=== PATIENT | male | born 1970 | race Caucasian/White ===

== ENCOUNTER 2018-04-13 09:28 | Inpatient (IN) | payer MEDICAID ==
[~2018-04-13] VITALS: Ht 180.3 cm; Wt 108.9 kg
[2018-04-13 09:41] VITALS: BP 231/161
--- NOTE | 2018-04-13 09:45 | NUR ---
47 Y/O M PRESENTS TO THE ED W/C/O "FEELING BLOATED IN THE STOMACH." PT STATES HE HAD BLOODY URINE A WEEK AGO BUT IT HAS RESOLVED. PT ALSO REPORTS INTERMITTENT BLURRY VISION. PT DENIES N/V/D; SKIN IS INTACT, PINK/WARM/DRY; AAOX4, PERRL, WITH EVEN AND STEADY GAIT; LUNGS CLEAR BL, BREATHING UNLABORED; HR EVEN AND REGULAR, BL PERIPHERAL PULSES PRESENT; BS ACTIVE X4. PT DENIES ANY FEVER, CP, SOB, OR COUGH AT THIS TIME; PT STATES 6/10 PAIN AT THIS TIME; VSS; PATIENT POSITIONED FOR COMFORT; HOB ELEVATED; BEDRAILS UP X2; BED DOWN. DENIES HX DENIES RX. BLOOD PRESSURE 231/[address] MIN MADE AWARE.
--- NOTE | 2018-04-13 09:52 | NUR ---
PATIENT AMBULATED TO BED #4
--- NOTE | 2018-04-13 10:12 | NUR ---
EKG COMPLETED BY ANDREW HAGER.
--- NOTE | 2018-04-13 10:18 | NUR ---
Patient being evaluated by physician at bedside.
--- NOTE | 2018-04-13 10:38 | NUR ---
PT TAKEN TO CT VIA WHEELCHAIR
--- NOTE | 2018-04-13 10:38 | NUR ---
PT BEING TAKEN TO CT AT THIS TIME.
[2018-04-13 10:39] LABS: BASOPHILS % (AUTO) 0.4 % (0.0-2.0); EOSINOPHILS # (AUTO) 0.2 K/uL (0-0.4); EOSINOPHILS % (AUTO) 2.7 % (0.0-4.0); HEMATOCRIT 32.3 % (36-52); HEMOGLOBIN 11.3 g/dL (12.0-18.0); LYMPHOCYTES # (AUTO) 1.1 K/uL (2.0-11.5); LYMPHOCYTES % (AUTO) 14.5 % (20.5-51.1); MEAN CORPUSCULAR HEMOGLOBIN 31 pg (27-31); MEAN CORPUSCULAR HGB CONC 35 g/dL (33-37); MEAN CORPUSCULAR VOLUME 88.9 fL (80-94); MONOCYTES # (AUTO) 0.4 K/uL (0.8-1.0); MONOCYTES % (AUTO) 4.7 % (1.7-9.3); NEUTROPHILS # (AUTO) 5.9 K/uL (1.8-7.7); NEUTROPHILS % (AUTO) 77.7 % (42.2-75.2); PLATELET COUNT (AUTO) 125 K/uL (140-450); RED BLOOD CELL COUNT(AUTO) 3.64 MIL/uL (4.20-6.10); RED CELL DISTRIBUTION WIDTH 16.1 % (11.6-13.7); WHITE BLOOD COUNT (AUTO) 7.5 K/uL (4.8-10.8)
[2018-04-13 10:42] LABS: BILIRUBIN,URINE 1+ (NEGATIVE); BLOOD, URINE 3+ (NEGATIVE); COLOR,URINE YELLOW (YELLOW); LEUKOCYTE ESTERASE ,URINE NEGATIVE (NEGATIVE); NITRITE, URINE NEGATIVE (NEGATIVE); UGLUCOSE NEGATIVE (NEGATIVE)
[2018-04-13 10:44] LABS: ALBUMIN 4.1 g/dL (3.4-5.0); ANION GAP 13.2 (8-16); CARBON DIOXIDE 30.5 mmol/L (21-32); CREATININE 3.2 mg/dL (0.7-1.3); TOTAL BILIRUBIN 4.3 mg/dL (0.0-1.0)
[2018-04-13 10:47] LABS: APPEARANCE,URINE HAZY (CLEAR); RBC,URINE 20-50 /HPF (0-5)
--- NOTE | 2018-04-13 10:47 | NUR ---
PT RETURNED FROM CT
[2018-04-13 10:48] LABS: WBC,URINE 0-5 (RARE) /HPF (0-5)
[2018-04-13 10:54] LABS: POTASSIUM 2.7 mmol/L (3.5-5.1)
[2018-04-13] MEDS ORDERED: LABETALOL 100 MG/20 ML VIAL IVP ONE (11:25)
[2018-04-13] MEDS ORDERED: POTASSIUM CHLORIDE 10 MEQ TABER PO ONE (11:25)
[2018-04-13] MEDS ORDERED: DOCUSATE SODIUM 100 MG GELCAP PO PRN (11:35)
[2018-04-13] MEDS ORDERED: ACETAMINOPHEN 325 MG TAB PO PRN (11:35)
[2018-04-13] MEDS ORDERED: MORPHINE SULFATE 2 MG/ML SYR IVP PRN (11:35)
[2018-04-13] MEDS ORDERED: HYDROcodone/APAP 7.5/325 MG 1 TAB PO PRN (11:35)
[2018-04-13] MEDS ORDERED: ONDANSETRON 4 MG/2 ML VIAL IM/IVP PRN (11:35)
--- NOTE | 2018-04-13 11:44 | NUR ---
PT RESTING IN BED, HANDS CROSSED, FEET UNCROSSED. RELAXED FACIAL POSISTION. SISTER AT BEDSIDE. NO S/S OF DISTRESS NOTED.
--- NOTE | 2018-04-13 12:02 | NUR ---
US AT BEDSIDE.
--- NOTE | 2018-04-13 12:22 | NUR ---
B/P 225/[address] MIN MADE AWARE, STATED WE WILL CONTINUE TO MONITOR BEFORE TRANSFER TO FLOOR, ORDERS TO BE PUT IN.
[2018-04-13] MEDS ORDERED: LORazepam 2 MG/ML VIAL IVP STA (12:24)
[2018-04-13] MEDS ORDERED: hydrALAZINE 20 MG/ML VIAL IVP STA ×2 (12:24→13:05)
--- NOTE | 2018-04-13 13:04 | NUR ---
DR. MIN MADE AWARE OF B/P 193/125.
--- NOTE | 2018-04-13 13:11 | NUR ---
PER DR. MIN 10MG HYDRALAZINE TO BE GIVEN.
[2018-04-13 13:16] LABS: BARBITURATE, URINE NEG. ng/ml (NEG <=200); BENZODIAZEPINE, URINE NEG. ng/mL (NEG <=200); CANNABINOID, URINE NEG. ng/mL (NEG <=50); COCAINE, URINE NEG. ng/mL (NEG <=300); OPIATE, URINE NEG. ng/mL (NEG <=2000); PHENCYCLIDINE SCREEN,URINE NEG. ng/mL (NEG <=25)
[2018-04-13 13:18] LABS: PROTHROMBIN TIME 9.9 secs (10.8-13.4)
[2018-04-13] MEDS ORDERED: hydrALAZINE 25 MG TAB PO SCH (13:21)
[2018-04-13 13:28] LABS: CHOL/HDL RATIO 2.9 (1-4.5); MAGNESIUM 2.1 mg/dL (1.8-2.4); PHOSPHORUS 3.6 mg/dL (2.5-4.9); THYROID STIMULATING HORMONE 1.02 uIU/mL (0.34-3.74)
[2018-04-13] MEDS ORDERED: ASPIRIN 325 MG TAB PO ONE (13:45)
--- NOTE | 2018-04-13 13:48 | NUR ---
PT TO GO TO ICU PER DR. MIN
--- NOTE | 2018-04-13 13:58 | NUR ---
PT TAKEN TO ICU BY RN PAUL AND EMT DWAYNE
[2018-04-13] MEDS ORDERED: HEPARIN PER PHARMACY MC PRN (14:05)
--- NOTE | 2018-04-13 14:08 | NUR ---
Patient will be admitted to care of DR. HATFIELD. Admited to ICU. Will go to room 3. Belongings list completed. Report to KULWANT STAHL.
[2018-04-13 14:10] VITALS: BP 187/102
--- NOTE | 2018-04-13 14:10 | NUR ---
PT TRANSFERRED FROM ED TO ICU. PT IS ALERT AND ORIENTED X4. ABLE TO MAKE NEEDS KNOWN AND FOLLOWS COMMANDS. DENIES PAIN. TEMP 99.2. SINUS RHYTHM ON MONITOR. BP 175/113, HR 94, O2 97% ON ROOM AIR. LUNGS SOUND CLEAR BILATERALLY. BREATHING EVEN AND UNLABORED. NO C/O SOB OR CP. ABDOMEN SOFT, ROUND, NONTENDER W/ ACTIVE BOWEL SOUNDS. PERIPHERAL IV G20 TO LEFT AC LEAKING, WILL INSERT NEW IV. SKIN IS DRY AND WARM TO TOUCH. PULSES PRESENT TO ALL EXTREMITIES. SKIN INTACT, NO EDEMA NOTED. PT IS CONTINENT B&B. BED IN LOWEST POSITION AND CALL LIGHT WITHIN REACH. WILL CONTINUE TO MONITOR.
[2018-04-13] MEDS: NACL 0.9% 1,000 ML IV SCH (14:45)
[2018-04-13] MEDS ORDERED: POTASSIUM CHLORIDE 10 MEQ TABER PO SCH (15:10)
[2018-04-13] MEDS ORDERED: METOPROLOL 5 MG/5 ML VIAL IV PRN (15:10)
[2018-04-13] MEDS: hePARIN / DEXT 5% PREMIX 250 ML IV SCH (15:34)
--- NOTE | 2018-04-13 15:34 | NUR ---
HEPARIN DRIP STARTED ORDERED PER PROTOCOL. WILL CONTINUE TO MONITOR.
[2018-04-13 16:00] VITALS: BP 173/142
[2018-04-13] MEDS: hydrALAZINE 25 MG TAB PO SCH (16:23)
--- NOTE | 2018-04-13 16:28 | NUR ---
PT SEEN AND EXAMINED BY DR. LIU. WILL FOLLOW UP ON ORDERS.
[2018-04-13] MEDS ORDERED: METOPROLOL 25 MG TAB PO SCH (16:32)
--- NOTE | 2018-04-13 17:10 | NUR ---
DINNER PROVIDED. PT ABLE TO EAT INDEPENDENTLY. FAMILY AT BEDSIDE. NO SIGNS OF DISTRESS NOTED AT THIS TIME. SAFETY PRECAUTIONS IN PLACE.
[2018-04-13 18:00] VITALS: BP 184/120
[2018-04-13] MEDS ORDERED: amLODIPine 5 MG TAB PO SCH (18:28)
[2018-04-13] MEDS: METOPROLOL 5 MG/5 ML VIAL IV PRN (18:32)
--- NOTE | 2018-04-13 18:40 | NUR ---
PT SEEN AND EXAMINED BY DR. SARAH Rodriguez WILL FOLLOW UP ON ORDERS.
--- NOTE | 2018-04-13 19:19 | NUR ---
REPORT GIVEN TO STOCK HOLDER NURSE FOR CONTINUITY OF CARE. NO SIGNS OF ACUTE DISTRESS NOTED AT THIS TIME.
--- NOTE | 2018-04-13 19:30 | NUR ---
RECEIVED BEDSIDE REPORT FROM MORNING SHIFT RNCESAR, FOR CONTINUITY OF CARE. YY=072/91, HR=76, SATING 100%, AND RR=17. PT IS AAOX4, ABLE TO RESPOND TO COMMANDS. LUNG SOUNDS CLEAR ON BILATER UPPER LOWER LOBES. ON ROOM AIR. ON RENAL DIET, BOWEL SOUND ACTIVE X4, ABDOMEN IS LARGE/ROUND. SR ON DIRECTOR [facility], RIGHT HAND 20 GAUGE, AND RFA 20 GAUGE, INFUSING NS AT 60CC/HR. PT DENIES PAIN/NAUSEA AT THIS TIME. SKIN IS INTACT, WARM TO TOUCH, NORMAL IN COLOR. URINAL AT BEDSIDE, INDEPENDENT. NS AT 60ML/HR INTO RIGHT FA 20 GAUGE, HEPARIN TO RIGHT HAND AT 1000 UNIT/HR TO RIGHT HAND 20 GAUGE. SIDE RAILS UPX4, HOB ELEVATED ABOVE 30 DEG, ABLE TO REPOSITION SELF IN BED.
[2018-04-13 20:00] VITALS: BP 166/114
[2018-04-13] MEDS: METOPROLOL 25 MG TAB PO SCH (20:23)
--- NOTE | 2018-04-13 20:30 | NUR ---
FAMILY AT BEDSIDE TO SEE PATIENT.
[2018-04-13 22:00] VITALS: BP 153/102
[2018-04-13 22:08] LABS: PROTHROMBIN TIME 10.4 secs (10.8-13.4)
--- NOTE | 2018-04-13 23:22 | NUR ---
PT SLEEPING, APPEARS WITHOUT DISTRESS. BP= 150/99, HR=72. DAYLIN PAIN AT THIS TIME, NS INFUSING AT 60CC/HR AND HEPARIN AT 1360UNITS/HR. URINE COLLECTIONS AT BEDSIDE BASIN, PLACED ON ICE.
[2018-04-14] VITALS (12 sets, daily range): BP systolic 151–200; BP diastolic 71–133
--- NOTE | 2018-04-14 01:17 | NUR ---
PT SLEEPING HOB ELEVATED, BP 143/91, SR-SB ON SUBSTITUTE NURSE, FLUCUTATING HR 58-60 TO 78.
--- NOTE | 2018-04-14 01:48 | NUR ---
PT SITTING UP AT BEDSIDE, URINE IS DARK JOSH IN COLOR/ 400cc. PT REQUEST ICE CHIPS FOR MILD THROAT DRYNESS. PT IS RELAXED, DENIES PAIN.
--- NOTE | 2018-04-14 01:54 | NUR ---
KELLY FROM LAB AT BEDSIDE TO COLLECT BLOOD SAMPLE.
[2018-04-14] MEDS: METOPROLOL 5 MG/5 ML VIAL IV PRN (02:34)
--- NOTE | 2018-04-14 02:40 | NUR ---
PRN METOPROLOL GIVEN PER ORDER.
--- NOTE | 2018-04-14 04:42 | NUR ---
CALLED DR. ZIMMERMAN AT [phone], UPDATED ON BP = 161/108, NO NEW ORDERS AT THIS TIME, WILL CONTINUE TO MONITOR.
[2018-04-14] MEDS: NACL 0.9% 1,000 ML IV SCH ×2 (04:55→19:57)
[2018-04-14 05:27] LABS: CARBON DIOXIDE 29.2 mmol/L (21-32); CREATININE 3.2 mg/dL (0.7-1.3)
[2018-04-14 05:30] LABS: MAGNESIUM 1.9 mg/dL (1.8-2.4); PHOSPHORUS 3.8 mg/dL (2.5-4.9)
[2018-04-14 05:58] LABS: POTASSIUM 3.2 mmol/L (3.5-5.1)
--- NOTE | 2018-04-14 05:58 | NUR ---
DR. HORAN AT BEDSIDE TO SEE PATIENT, UPDATED ON PT CONDITIONS.
[2018-04-14 06:33] LABS: BASOPHILS % (AUTO) 0.4 % (0.0-2.0); EOSINOPHILS # (AUTO) 0.1 K/uL (0-0.4); EOSINOPHILS % (AUTO) 1.9 % (0.0-4.0); HEMATOCRIT 26.3 % (36-52); HEMOGLOBIN 9.2 g/dL (12.0-18.0); LYMPHOCYTES # (AUTO) 1.1 K/uL (2.0-11.5); LYMPHOCYTES % (AUTO) 17.7 % (20.5-51.1); MEAN CORPUSCULAR HEMOGLOBIN 32 pg (27-31); MEAN CORPUSCULAR HGB CONC 35 g/dL (33-37); MEAN CORPUSCULAR VOLUME 90.3 fL (80-94); MONOCYTES # (AUTO) 0.4 K/uL (0.8-1.0); MONOCYTES % (AUTO) 5.9 % (1.7-9.3); NEUTROPHILS # (AUTO) 4.5 K/uL (1.8-7.7); NEUTROPHILS % (AUTO) 74.1 % (42.2-75.2); PLATELET COUNT (AUTO) 107 K/uL (140-450); RED BLOOD CELL COUNT(AUTO) 2.91 MIL/uL (4.20-6.10); WHITE BLOOD COUNT (AUTO) 6.1 K/uL (4.8-10.8)
--- NOTE | 2018-04-14 07:27 | NUR ---
PROVIDED BEDSIDE REPORT FOR MORNING SHIFT, KULWANT STAHL FOR CONTINUITY OF CARE.
--- NOTE | 2018-04-14 07:28 | NUR ---
RECEIVED REPORT FROM SMOKING PIPE MOUNTER RN AT BEDSIDE, PT IS AAOX4, ABLE TO FOLLOW COMMANDS AND MAKE NEEDS KNOWN, ELEVATED BP 182/132 NOTED, WILL MEDICATED, DENIES PAIN, NO S/S OF DISTRESS, CLEAR LUNG SOUNDS DIGNA, ON RA, O2 SAT 97%, DENIES CHEST PAIN, SR ON HOP SORTER, SOFT ABDOMEN WITH ACTIVE BOWEL SOUNDS, CONTINENT WITH B&B'S, SKIN IS WARM AND DRY TO TOUCH, NO OPEN WOUND PRESENT, IV SITE TO RIGHT FOREARM 20GA, AND RIGHT HAND 20GA, RUNNING NS AT 60 ML/HR AND HEPARIN AT 1350 UNITES/HR, ABLE TO MOVE ALL EXTREMITIES, SAFETY MEASURES IN PLACE, CALL LIGHT WITHIN REACH, WILL CONTINUE TO MONITOR.
--- NOTE | 2018-04-14 07:50 | NUR ---
PATIENT HAS BEEN SCREENED AND CATEGORIZED MODERATE NUTRITION RISK. PATIENT WILL BE SEEN WITHIN 3-5 DAYS OF ADMISSION. 04/15/18GUERO CARRILLO RD
--- NOTE | 2018-04-14 07:50 | NUR ---
OFFERED BREAKFAST TO PT, PT IS ABLE TO SIT UP TO BEDSIDE AND HAVING BREAKFAST WITHOUT ASSIST, DR. HATFIELD CAME IN, EXPLAINED THE PLAN OF CARE FOR TODAY, PT VERBALIZED UNDERSTANDING.
[2018-04-14 08:16] LABS: T3 UPTAKE 27 % (24-39); T4 (THYROXINE) 11.4 ug/dL (4.5-12.0)
[2018-04-14 08:24] LABS: PROTHROMBIN TIME 10.6 secs (10.8-13.4)
--- NOTE | 2018-04-14 08:30 | NUR ---
SCHEDULED MEDICATION GIVEN, PT IS ABLE TO TAKE PILLS WHOLE, NO ADVERSE EFFECTS NOTED, WILL CONTINUE TO MONITOR.
[2018-04-14] MEDS: hydrALAZINE 25 MG TAB PO SCH ×3 (08:36→17:01)
[2018-04-14] MEDS: METOPROLOL 25 MG TAB PO SCH (08:38)
[2018-04-14] MEDS ORDERED: hydrALAZINE 25 MG TAB PO SCH (09:00)
[2018-04-14] MEDS ORDERED: amLODIPine 5 MG TAB PO SCH ×2 (09:00→12:08)
[2018-04-14] MEDS ORDERED: POTASSIUM CHLORIDE 10 MEQ TABER PO SCH (09:00)
[2018-04-14] MEDS ORDERED: PROBIOTIC SCREEN 1 EA MISC MC PRN (09:55)
--- NOTE | 2018-04-14 10:30 | NUR ---
PT'S BP 180/130, DR. SMALLS MADE AWARE, WILL MEDICATED.
[2018-04-14] MEDS ORDERED: METOPROLOL 5 MG/5 ML VIAL IV SCH ×2 (10:40→17:00)
[2018-04-14] MEDS: hePARIN / DEXT 5% PREMIX 250 ML IV SCH (11:42)
--- NOTE | 2018-04-14 11:50 | NUR ---
PT'S BP STILL ELEVATED ONE AFTER IV PUSH OF METOPROLOL, 170/121, PT IS ASYMPTOMATIC, SITTING UP AND HAVING CONVERSATIONS WITH FAMILY MEMBERS, DR. ROB MADE AWARE, WILL FOLLOW UP WITH NEW ORDERS.
[2018-04-14] MEDS ORDERED: METOPROLOL 25 MG TAB PO SCH ×3 (12:09→21:00)
--- NOTE | 2018-04-14 13:48 | NUR ---
PT'S BP STILL HIGH, 169/111 AT THIS TIME, DR. MOSQUEDA MADE AWARE.
[2018-04-14 15:37] LABS: PROTHROMBIN TIME 10.2 secs (10.8-13.4)
--- NOTE | 2018-04-14 16:00 | NUR ---
PT IS RESTING IN BED, NO S/S OF DISTRESS, VSS, DENIES PAIN, ABLE TO REPOSITION SELF.
[2018-04-14] MEDS ORDERED: hydrALAZINE 20 MG/ML VIAL IVP PRN (17:45)
--- NOTE | 2018-04-14 17:50 | NUR ---
DR. ROSENBERG CAME IN TO SEE PT AT BEDSIDE, WILL FOLLOW UP WITH NEW ORDERS.
--- NOTE | 2018-04-14 18:24 | NUR ---
DR. SMITH CAME IN TO SEE PT AT BEDSIDE, WILL FOLLOW UP WITH NEW ORDERS.
--- NOTE | 2018-04-14 18:30 | NUR ---
24 HOUR URINE COLLECTED AND SENT TO LAB.
--- NOTE | 2018-04-14 19:15 | NUR ---
RECEIVED BEDSIDE REPORT FROM MORNING SHIFT RNKULWANT, FOR CONTINUITY OF CARE. PERRL, PT IS AAOX4, AWAKE AND ABLE TO MAKE NEEDS KNOWN. SR ON POUNCER. AFEBRILE TEMP 98.7. LUNG SOUND CLEAR UPPER/LOWER BILATERAL LOBES. ON ROOM AIR. RENAL DIET, BOWEL SOUND ACTIVE, DENIES PAIN/NAUSEA. CONTINENT, URINAL AT BEDSIDE, URINE IS DARK JOSH IN COLOR, 425ML. RIGHT HAND 20 GAUGE PIV, AND RFA 20 GAUGE PIV, INFUSING NS AT 60CC/HR. SKIN INTACT, NORMAL IN COLOR, WARM TO TOUCH,NO SIGNS OF EDEMA. STANDARD PRECAUTIONS, BED IN LOWEST POSITION, HOB ELEVATED. PT SITTING UP AT BEDSIDE.
--- NOTE | 2018-04-14 19:18 | NUR ---
REPORT GIVEN TO MAINSPRING BARREL ASSEMBLY CLEANER NURSE AT BEDSIDE FOR CONTINUE OF CARE, PT IS STABLE CONDITION.
--- NOTE | 2018-04-14 23:24 | NUR ---
SLEEPING, AAOX4, HR=69, SATING 98%, BP 151/100, RR=19. ABLE TO REPOSITION SELF IN BED. NS AT 60CC/HR. DAYLIN PAIN/NAUSEA.
[2018-04-15] VITALS (9 sets, daily range): BP systolic 129–156; BP diastolic 77–97
--- NOTE | 2018-04-15 00:02 | NUR ---
SITTING UP AT BEDSIDE USING URINAL, URINE IS JOSH IN COLOR, 400ML. PW=001/89, HR=69, 99% SATING, AND RR=22.
--- NOTE | 2018-04-15 02:11 | NUR ---
PT HR FLUCTUATING WITH SINUS BRANDO TO SR, WITH HR 53-75 ON MONITOR. BP = 129/79, SLEEPING, FLACC 0.
--- NOTE | 2018-04-15 04:21 | NUR ---
PT STANDING UP AT BEDSIDE USING URINAL, INDEPENDENT. DENIES PAIN/NAUSEA. URINE RVVOOD=674CG, JOSH IN COLOR.
--- NOTE | 2018-04-15 05:23 | NUR ---
INDEPENDENT WITH AM CARES, WHILE STANDING UP AT BEDSIDE PT DENIES ANY LIGHTHEADEDNESS/DIZZINESS. PT STATED HE SLEPT WELL. FRESH LINENS/GOWN PROVIDED TO PATIENT.
--- NOTE | 2018-04-15 05:45 | NUR ---
PT SLEEPING, HI=405/97. TOTAL URINE OUTPUT Q ABCJD=[id number].
[2018-04-15 05:54] LABS: ANION GAP 10.3 (8-16); CARBON DIOXIDE 27.4 mmol/L (21-32); CREATININE 3.2 mg/dL (0.7-1.3); POTASSIUM 3.7 mmol/L (3.5-5.1)
[2018-04-15 05:57] LABS: BASOPHILS % (AUTO) 0.4 % (0.0-2.0); EOSINOPHILS # (AUTO) 0.2 K/uL (0-0.4); EOSINOPHILS % (AUTO) 4.3 % (0.0-4.0); HEMATOCRIT 25.8 % (36-52); HEMOGLOBIN 8.8 g/dL (12.0-18.0); LYMPHOCYTES % (AUTO) 22.7 % (20.5-51.1); MEAN CORPUSCULAR HEMOGLOBIN 31 pg (27-31); MEAN CORPUSCULAR HGB CONC 34 g/dL (33-37); MEAN CORPUSCULAR VOLUME 91.1 fL (80-94); MONOCYTES # (AUTO) 0.3 K/uL (0.8-1.0); MONOCYTES % (AUTO) 7.4 % (1.7-9.3); NEUTROPHILS % (AUTO) 65.2 % (42.2-75.2); PLATELET COUNT (AUTO) 113 K/uL (140-450); RED BLOOD CELL COUNT(AUTO) 2.83 MIL/uL (4.20-6.10); WHITE BLOOD COUNT (AUTO) 4.6 K/uL (4.8-10.8)
[2018-04-15 06:00] LABS: MAGNESIUM 1.7 mg/dL (1.8-2.4)
--- NOTE | 2018-04-15 06:44 | NUR ---
DR SANTOS AT BEDSIDE TO SEE PATIENT, UPDATED ON PT CONDITION.
--- NOTE | 2018-04-15 07:18 | NUR ---
PROVIDED BEDSIDE REPORT TO MORNING SHIFT RNJOHN, FOR CONTINUITY OF CARE.
--- NOTE | 2018-04-15 07:20 | NUR ---
PHYSICIAN'S ROUNDS. INFORMED DR. SMALLS OF PATIENT'S HEMOGLOBIN 8.8 PLATELET 113 TODAY. PER PHYSICIAN OK TO GIVE HEPARIN SC TODAY'S DOSE
[2018-04-15] MEDS ORDERED: MAG SULF 2000 MG/WATER PREMIX 50 ML IV SCH (07:30)
--- NOTE | 2018-04-15 08:00 | NUR ---
PATIENT ALERT, ORIENTED TO TIME, PERSON, PLACE, SITUATION. SERVED BREAKFAST TRAY AND PATIENT EATING INDEPENDENTLY AT THE EDGE OF THE BED. NO COMPLAINTS OF PAIN ON ROOM AIR SO2 99%, SINUS RHYTHM 70BPM, CLERA BREATH SOUNDS, SOFT ABDOMEN, SKIN INTACT, WITH PERIPHERAL LINES GAUGE 20s AT RIGHT HAND-INFUSING NORMAL SALINE 60ML/HR., RIGHT FOREARM SALINE LOCKED-BOTH SITES INTACT. PATIENT VOIDING FREELY. CALL DOMÍNGUEZ WITHIN REACH.
[2018-04-15] MEDS: hydrALAZINE 25 MG TAB PO SCH ×3 (08:12→16:49)
[2018-04-15] MEDS: amLODIPine 5 MG TAB PO SCH (08:14)
[2018-04-15] MEDS: METOPROLOL 50 MG TAB PO SCH ×2 (09:07→20:05)
--- NOTE | 2018-04-15 09:30 | NUR ---
Dr. Horowitz at bedside for rounds
--- NOTE | 2018-04-15 10:02 | NUR ---
Informed Dr. Mckeon that he needs to make a follow up appt for the pt.
--- NOTE | 2018-04-15 10:58 | NUR ---
Per Dr. Bentley no need to get sample for 24 hr. urine collection as it was already done yesterday
[2018-04-15] MEDS: NACL 0.9% 1,000 ML IV SCH (16:49)
--- NOTE | 2018-04-15 17:00 | NUR ---
Patient offered toiletries for hygienic cares. As per patient "thank you I did it by myself earlier". Informed patient he can ask for new gown/linen anytime as he refused having it at this time
--- NOTE | 2018-04-15 17:50 | NUR ---
DR. SMITH AT BEDSIDE MADE AWARE OF PATIENT'S BLOOD PRESSURE TRENDS. PATIENT CURRENTLY HAVING DINNER AT THIS TIME. SITTING AT THE EDGE OF THE BED
[2018-04-15 19:05] LABS: TOTAL PROTEIN URINE 149.4 MG/DL
--- NOTE | 2018-04-15 19:16 | NUR ---
REPORT GIVEN TO NIGHT RN FOR CONTINUITY OF CARE
--- NOTE | 2018-04-15 19:20 | NUR ---
RECEIVED BEDSIDE REPORT FROM MORNING NURSE. PATIENT AAO X4, VERBALLY RESPONSIVE. BILATERAL LUNGS SOUND CLEAR. NO ACUTE RESPIRATORY DISTRESS NOTED. INTERMITTENT DRY COUGH NOTED. SR ON THE MONITOR. ACTIVE BOWEL SOUND FROM ALL 4 QUADS. PERIPHERAL LINES TO RIGHT HAND 20G AND RIGHT FOREARM 20G RUNNING WITH NS 60ML/HR. SKIN IS WARM TO TOUCH AND INTACT. ABLE TO AMBULATE AND USE URINAL. PATIENT RESTING CALM IN BED. HOB ELEVATED, BED IN LOW POSITION. CALL LIGHT WITHIN REACH. WILL CONTINUE TO MONITOR.
--- NOTE | 2018-04-15 20:00 | NUR ---
SPOKE WITH DR. HERRERA ABOUT HEPARIN SUB Q, PLATELET 113. OK TO GIVE.
--- NOTE | 2018-04-15 20:20 | NUR ---
ADMINISTERED SCHEDULED MEDICATIONS ORDERED. NO ACUTE DISTRESS NOTED.
[2018-04-15] MEDS: cloNIDine 0.1 MG TAB PO SCH (22:23)
--- NOTE | 2018-04-15 22:25 | NUR ---
ADMINISTERED CATAPRES ORDERED. NO ACUTE DISTRESS NOTED. DENIES PAIN. WILL CONTINUE TO MONITOR.
--- NOTE | 2018-04-15 23:50 | NUR ---
PATIENT RESTING IN BED, AWAKE AT THIS TIME. BP 128/76 NOTED. SR TO SB ON THE MONITOR. WILL CONTINUE TO MONITOR.
[2018-04-16] VITALS: BP 128/76
--- NOTE | 2018-04-16 02:10 | NUR ---
PATIENT IN ASLEEP, AROUSABLE TO VOICE. SB ON THE MONITOR WITH HR 50'S. NO ACUTE DISTRESS NOTED. DENIES PAIN. WILL CONTINUE TO MONITOR.
[2018-04-16 04:00] VITALS: BP 129/81
--- NOTE | 2018-04-16 04:30 | NUR ---
PATIENT IN ASLEEP, AROUSABLE TO NAME. NO ACUTE DISTRESS NOTED. DENIES PAIN. SB ON THE MONITOR WITH HR 50'S. WILL CONTINUE TO MONITOR.
[2018-04-16] MEDS: NACL 0.9% 1,000 ML IV SCH (06:12)
[2018-04-16 06:16] LABS: MAGNESIUM 2.1 mg/dL (1.8-2.4); PHOSPHORUS 4.4 mg/dL (2.5-4.9)
[2018-04-16 06:18] LABS: ANION GAP 12.2 (8-16); CARBON DIOXIDE 24.2 mmol/L (21-32); CREATININE 3.2 mg/dL (0.7-1.3); POTASSIUM 3.4 mmol/L (3.5-5.1)
[2018-04-16 06:30] LABS: BASOPHILS % (AUTO) 0.3 % (0.0-2.0); EOSINOPHILS # (AUTO) 0.2 K/uL (0-0.4); EOSINOPHILS % (AUTO) 4.5 % (0.0-4.0); HEMATOCRIT 24.8 % (36-52); HEMOGLOBIN 8.4 g/dL (12.0-18.0); LYMPHOCYTES # (AUTO) 1.1 K/uL (2.0-11.5); LYMPHOCYTES % (AUTO) 22.8 % (20.5-51.1); MEAN CORPUSCULAR HEMOGLOBIN 31 pg (27-31); MEAN CORPUSCULAR HGB CONC 34 g/dL (33-37); MEAN CORPUSCULAR VOLUME 90.7 fL (80-94); MONOCYTES # (AUTO) 0.3 K/uL (0.8-1.0); MONOCYTES % (AUTO) 5.5 % (1.7-9.3); NEUTROPHILS # (AUTO) 3.1 K/uL (1.8-7.7); NEUTROPHILS % (AUTO) 66.9 % (42.2-75.2); PLATELET COUNT (AUTO) 124 K/uL (140-450); RED BLOOD CELL COUNT(AUTO) 2.73 MIL/uL (4.20-6.10); WHITE BLOOD COUNT (AUTO) 4.7 K/uL (4.8-10.8)
--- NOTE | 2018-04-16 06:30 | NUR ---
PATIENT TRANSFERRED TO TELE 112B. REPORT GIVEN TO NAVEEN. PATIENT VSS AT THIS TIME. NO ACUTE DISTRESS, DENIES PAIN.
--- NOTE | 2018-04-16 06:30 | NUR ---
RECEIVED PT FROM ICU VIA WHEELCHAIR, AMBULATED TO BED WITH STEADY GAIT, NO DISTRESS NOTED, IVF OF NS AT 60ML/H RESUMED, CALL LIGHT WITHIN REACH.
--- NOTE | 2018-04-16 06:55 | NUR ---
DUE K-DUR 40MEQ PO GIVEN, TOLERATED WELL.
[2018-04-16] MEDS ORDERED: POTASSIUM CHLORIDE 10 MEQ TABER PO SCH (07:00)
--- NOTE | 2018-04-16 07:30 | NUR ---
PT SLEEPING, NO SIGNS OF DISTRESS, REPORT GIVEN TO FAVIO CRAIG FOR CONTINUITY OF CARE.
--- NOTE | 2018-04-16 07:31 | NUR ---
RECEIVED REPORT FROM BONE DRIER OPERATOR NURSE NAVEEN. PATIENT SLEEPING AND NO DISTRESS NOTED ON ROOM AIR. PATIENT ON TELE MONITOR AND STANDARD PRECAUTIONS. FALL RISK PROTOCOL IN PLACE. IV ON R HAND 20 G, PATENT CLEAN DRY AND INTACT INFUSING NS AT 60 AND R FA 20 G SALINE LOCK, PATENT CLEAN DRY AND INTACT. BED IN LOW POSITION, CALL LIGHT WITHIN REACH. WILL CONTINUE TO MONITOR.
[2018-04-16 07:37] VITALS: BP 138/101
[2018-04-16] MEDS ORDERED: METO50TA99 PO (08:33)
[2018-04-16] MEDS ORDERED: AMLO5TAB6 PO (08:33)
[2018-04-16] MEDS ORDERED: CLON0.1T42 PO (08:33)
[2018-04-16] MEDS: cloNIDine 0.1 MG TAB PO SCH (09:16)
[2018-04-16] MEDS: METOPROLOL 50 MG TAB PO SCH (09:16)
[2018-04-16] MEDS: amLODIPine 5 MG TAB PO SCH (09:17)
--- NOTE | 2018-04-16 09:21 | NUR ---
ADMINISTERED PRESCRIBED MEDS. PATIENT TOLERATED WELL. WILL CONTINUE TO MONITOR.
[2018-04-16 10:35] LABS: CREATININE 3.2 mg/dL (0.7-1.3)
--- NOTE | 2018-04-16 11:11 | NUR ---
04/16/18 RD INITIAL ASSESSMENT COMPLETED PLEASE REFER TO NUTRITION ASSESSMENT UNDER CARE ACTIVITY FOR ESTIMATED NUTRITIONAL NEEDS. 1. CONTINUE RENAL/CARDIAC DIET TOLERATED 2. RD PROVIDED RENAL DIET EDUCATION 3. RD TO FOLLOW-UP 5-7 DAYS, LOW RISK GUERO CARRILLO, RD
[2018-04-16 11:45] VITALS: BP 129/81
--- NOTE | 2018-04-16 11:45 | NUR ---
FAMILY AT BEDSIDE. PATIENT ON ROOM AIR, WITH NO DISTRESS NOTED. WILL CONTINUE TO MONITOR PATIENT.
--- NOTE | 2018-04-16 13:32 | NUR ---
Shot Blaster Note: I met with patient at bedside. Per patient, he does not have a pcp at this time. I emphasized to him the importance of following up with a physician post discharge and provided him with a list of low cost clinics. He verbalized understanding. He agreed to attend appointment at [facility] (accepts [facility]).
--- NOTE | 2018-04-16 14:35 | NUR ---
PATIENT SLEEPING. ON ROOM AIR, NO DISTRESS NOTED. WILL CONTINUE TO MONITOR.
[2018-04-16 16:00] VITALS: BP 138/88
--- NOTE | 2018-04-16 16:40 | NUR ---
FAMILY AT BEDSIDE. PATIENT ON ROOM AIR, NO DISTRESS NOTED. WILL CONTINUE TO MONITOR.
[2018-04-16] MEDS ORDERED: INFLUENZA VIRUS VACCINE QUAD 0.5 ML SYR IMVAC PRN (16:45)
--- NOTE | 2018-04-16 18:00 | NUR ---
GAVE PATIENT DISCHARGE INSTRUCTIONS. FOLLOW UP WITH PCP WITHIN 1 WEEK. FOLLOW UP WITH [facility] LISTED ON PACKET. APPOINTMENT WITH [facility] L[facility]ED IN PACKET. RETURN TO NEAREST ER WHEN EXPERIENCING SOB, FEVER, PAIN, ETC. ADMINISTERED FLU VACCINE. PATIENT TOLERATED WELL. FAXED ALL MEDICAL RECORDS TO [facility] # [phone] ORDERED. PATIENT AWARE. REMOVED WRIST BAND AND TWO IVS. BOTH IV TIPS INTACT. ANSWERED ALL QUESTIONS AND CONCERNS.
--- NOTE | 2018-04-20 10:06 | NUR ---
PER ELISSA STAHLSHIFT PRODUCTION SUPERVISOR DIRECTOR, SHE HAD RECEIVED A CALL FROM THE PATIENT'S SISTER BALTAZAR, ASKING ABOUT A BP CUFF. I CALLED BACK AT [phone] AND BALTAZAR WASN'T THERE, AND I SPOKE WITH THE PATIENT. HE SAID THAT SOMEONE TOLD HIM THAT WE WOULD GIVE HIM A BP CUFF. I TOLD HIM THAT WE DON'T GIVE OUT BP CUFFS, I INFORMED HIM THAT SINCE HE HAS AN APPOINTMENT WITH [facility], THAT MAYBE HE CAN GET HELP WITH A BP CUFF. I ALSO TOLD HIM THAT HE COULD CHECK WITH [facility] OR OTHER PLACES THAT SELLS BP CUFFS. I ALSO INFORMED HIM IF HE GOES TO [employer], [employer]TC TO SHOW THEM HIS INSURANCE. PATIENT IS MEDICAL HOSP PRESUM.
[2018-04-22 14:02] LABS: ALDOSTERONE SERUM 5.1 ng/dL (0.0-30.0)
== END 2018-04-16 18:00 | disposition home or self-care (01) | DRG 190 ==
LOC: MED 09:28 → MTU 11:32 → MIC 14:21 → MTU 04-16 06:33
PROVIDERS: ADMIT General Practice; ATTEND General Practice
DX: I21.A1 Myocardial infarction type 2 (principal); R65.11 Systemic inflammatory response syndrome (SIRS) of non-infectious origin with acute organ dysfunction; I50.43 Acute on chronic combined systolic (congestive) and diastolic (congestive) heart failure; N17.9 Acute kidney failure, unspecified; E83.42 Hypomagnesemia; I31.3 Pericardial effusion (noninflammatory); D69.6 Thrombocytopenia, unspecified; N04.9 Nephrotic syndrome with unspecified morphologic changes; R16.1 Splenomegaly, not elsewhere classified; I11.0 Hypertensive heart disease with heart failure; F12.90 Cannabis use, unspecified, uncomplicated; D50.9 Iron deficiency anemia, unspecified; F19.10 Other psychoactive substance abuse, uncomplicated; I16.1 Hypertensive emergency; E80.6 Other disorders of bilirubin metabolism; E26.9 Hyperaldosteronism, unspecified; E87.6 Hypokalemia; E66.9 Obesity, unspecified; Z71.3 Dietary counseling and surveillance; Z83.3 Family history of diabetes mellitus; Z80.42 Family history of malignant neoplasm of prostate; Z82.49 Family history of ischemic heart disease and other diseases of the circulatory system; Z80.1 Family history of malignant neoplasm of trachea, bronchus and lung; Z68.33 Body mass index [BMI] 33.0-33.9, adult
CPT/HCPCS: 36415; 71045; 76770; 80048; 80053; 80305; 81001; 82088; 82140; 82150; 82550; 82570; 82575; 82948; 83036; 83615; 83690; 83735; 83880; 84100; 84156; 84436; 84443; 84479; 84484; 85025; 85610; 85730; 86160; 87081; 93005; 99285; J0360; J1644; J2060; J3475; J3490; J7030; Q0092